=== PATIENT | male | born 1955 | race Caucasian/White ===

== ENCOUNTER → 2019-04-04 | Outpatient (CLI) | payer BC ==
[~2019-04-04] MED LIST: ACET325 PO; AMOCLA875 PO; Cipro500 MG PO; DIPH50 PO; Fibercon625 MG PO; Flagyl500 MG PO; MOVE FREE JOIN1 EACH PO; MULVIT PO; MULVITA PO; Multiple Vitam1 EAC1 PO; OMEPRAZOLE MAGN20 MG PO; Omeprazole20 M1; PSYL5.85P PO; Percocet 5-3251 EACH PO; Psyllium Fibe0.52 GM PO
[2019-04-05 13:37] LABS: Stool Occult Bld Immuno 1 Negative (NEGATIVE)
== END | disposition home or self-care (01) ==
LOC: LAB SHORT 11:29 → LAB 11:29
PROVIDERS: Nurse Practitioner Family
DX: Z00.00 Encounter for general adult medical examination without abnormal findings (principal); Z12.11 Encounter for screening for malignant neoplasm of colon
CPT/HCPCS: G0328

== ENCOUNTER 2021-10-20 07:08 | Day surgery (SDC) | payer MEDICARE ==
[~2021-10-20] VITALS: Ht 172.7 cm; Wt 89.4 kg
[2021-10-20] MEDS ORDERED: LOSA25 PO (07:38)
[2021-10-20] MEDS ORDERED: Flomax0.4 MG PO (07:38)
[2021-10-20] MEDS ORDERED: FINA5 PO (07:39)
--- NOTE | 2021-10-20 09:17 | NUR ---
10/20/21 0917 Duke Woods 0.1 ML EPI MIXED WITH LIDOCAINE 2% 10MLS PER ORDER TO CONSTITUTE LIDOCAINE 2% 1:100,000. LIDOCAINE 2% 1:100,000 MIXED 1:1 WITH BUPIVACAINE 0.75% PER ORDER. 10 MLS OF THIS INJECTED AT OPSITE BY DR DECKER
--- NOTE | 2021-10-20 09:43 | NUR ---
10/20/21 0943 Yanely Cabrera AT CHAIR SIDE
== END 2021-10-20 10:04 | disposition home or self-care (01) ==
LOC: ORSCSDS 07:08
PROVIDERS: Ophthalmology
PROC: 080N0ZZ Alteration of Right Upper Eyelid, Open Approach (ICD-10-PCS; principal; 2021-10-20 08:55)
PROC: 080P0ZZ Alteration of Left Upper Eyelid, Open Approach (ICD-10-PCS; principal; 2021-10-20 08:55)
DX: H02.831 Dermatochalasis of right upper eyelid (principal); H02.834 Dermatochalasis of left upper eyelid; I10 Essential (primary) hypertension; K21.9 Gastro-esophageal reflux disease without esophagitis; N40.0 Benign prostatic hyperplasia without lower urinary tract symptoms; Z79.899 Other long term (current) drug therapy
CPT/HCPCS: A9270; J2001; J2704

== ENCOUNTER 2022-10-05 07:30 | Day surgery (SDC) | payer MEDICARE ==
[~2022-10-05] VITALS: Ht 172.7 cm; Wt 85.9 kg
[~2022-10-05 07:30] MED LIST changes: +FINA5 PO; +Flomax0.4 MG PO; +LOSA25 PO
[2022-10-05] MEDS ORDERED: Vitamin D1000 UNI1 (07:49)
[2022-10-05] MEDS ORDERED: PSYSENPA (07:49)
== END 2022-10-05 10:25 | disposition home or self-care (01) ==
LOC: ORSCSDS 07:30
PROVIDERS: Student in an Organized Health Care Education/Training Program
PROC: 0DBM8ZX Excision of Descending Colon, Via Natural or Artificial Opening Endoscopic, Diagnostic (ICD-10-PCS; principal; 2022-10-05 09:00)
PROC: 0DBH8ZX Excision of Cecum, Via Natural or Artificial Opening Endoscopic, Diagnostic (ICD-10-PCS; principal; 2022-10-05 09:00)
PROC: 0DBK8ZX Excision of Ascending Colon, Via Natural or Artificial Opening Endoscopic, Diagnostic (ICD-10-PCS; principal; 2022-10-05 09:00)
PROC: 0DBN8ZX Excision of Sigmoid Colon, Via Natural or Artificial Opening Endoscopic, Diagnostic (ICD-10-PCS; principal; 2022-10-05 09:00)
PROC: 0DBL8ZX Excision of Transverse Colon, Via Natural or Artificial Opening Endoscopic, Diagnostic (ICD-10-PCS; principal; 2022-10-05 09:00)
DX: Z12.11 Encounter for screening for malignant neoplasm of colon (principal); Z86.010 Personal history of colon polyps; D12.3 Benign neoplasm of transverse colon; D12.0 Benign neoplasm of cecum; D12.2 Benign neoplasm of ascending colon; D12.4 Benign neoplasm of descending colon; K63.5 Polyp of colon; K57.30 Diverticulosis of large intestine without perforation or abscess without bleeding; K64.8 Other hemorrhoids; I10 Essential (primary) hypertension; Z79.899 Other long term (current) drug therapy
CPT/HCPCS: 88305; J2704; J7120

== ENCOUNTER 2024-02-24 10:27 | Emergency (ER) | payer MEDICARE ==
[~2024-02-24] VITALS: Ht 172.7 cm; Wt 83.9 kg
[~2024-02-24 10:27] MED LIST changes: +PSYSENPA; +Vitamin D1000 UNI1
[2024-02-24] MEDS ORDERED: Ketorolac Tromethamine 30mg Vial IV ONE ×2 (11:25→12:40)
[2024-02-24] MEDS ORDERED: CeFAZolin Sodium 1,000 MG in NS 50 ML IV ONE ×2 (11:30→12:40)
[2024-02-24] MEDS ORDERED: NS 1,000 ML IV SCH (11:30)
[2024-02-24 11:40] LABS: BASOPHILS ABSOLUTE AUTO 0.03 K/mm3 (0.00-0.23); BASOPHILS PERCENT AUTO 0 % (0-2); EOSINOPHILS ABSOLUTE AUTO 0.07 K/mm3 (0.00-0.68); EOSINOPHILS PERCENT AUTO 1 % (0-6); Hematocrit 38.3 % (37.0-53.0); Hemoglobin 13.7 g/dL (13.5-17.5); IMMATURE GRAN ABSOLUTE AUTO 0.11 K/mm3 (0.00-0.10); IMMATURE GRAN PERCENT AUTO 1 % (0-1); LYMPHOCYTES ABSOLUTE AUTO 0.68 K/mm3 (0.84-5.20); LYMPHOCYTES PERCENT AUTO 6 % (21-46); MONOCYTES ABSOLUTE AUTO 1.06 K/mm3 (0.16-1.47); MONOCYTES PERCENT AUTO 9 % (4-13); Mean Corpuscular HGB 34.4 pg (26.0-34.0); Mean Corpuscular HGB Conc 35.8 g/dL (31.5-36.5); Mean Corpuscular Volume 96 fL (80-100); Mean Platelet Volume 9.9 fL (9.1-12.4); NEUTROPHILS PERCENT AUTO 84 % (41-73); Platelet Count 140 K/mm3 (150-400); RDW Coefficient Variation 12.5 % (11.7-14.2); RDW Standard Deviation 44.6 fL (35.1-46.3); Red Blood Cell Count 3.98 M/mm3 (4.30-5.90); White Blood Cell Count 12.05 K/mm3 (4.00-11.30)
[2024-02-24 11:50] LABS: Albumin, Blood 3.4 g/dL (3.4-5.0); Albumin/Globulin Ratio 0.8 (0.8-1.8); Bilirubin, Total 1.2 mg/dL (0.1-1.0); Bun/Creatinine Ratio 11.8 (12.0-20.0); Calcium, Blood 9.6 mg/dL (8.5-10.1); Creatinine, Blood 1.27 mg/dL (0.60-1.20); Globulin, Blood 4.2 g/dL (2.2-4.0); Potassium, Blood 3.9 mmol/L (3.5-5.5); Total Protein, Blood 7.6 g/dL (6.4-8.2)
[2024-02-24 13:38] LABS: Influenza A, PCR NEGATIVE (NEGATIVE); Influenza B, PCR NEGATIVE (NEGATIVE); Resp Syncytial Virus, PCR NEGATIVE (NEGATIVE); SARS-Cov-2 (COVID-19) PCR, MMC NEGATIVE (NEGATIVE)
[2024-02-24] MEDS ORDERED: SULTRIDS PO (13:48)
[2024-02-24] MEDS ORDERED: CEPH500 PO (13:48)
[2024-02-24] MEDS ORDERED: IBUP600 PO (13:48)
[2024-02-24 14:35] VITALS: BP 114/89
== END 2024-02-24 14:38 | disposition home or self-care (01) ==
LOC: ER 10:27
PROVIDERS: Emergency Medicine
DX: L03.311 Cellulitis of abdominal wall (principal); L03.115 Cellulitis of right lower limb; E87.1 Hypo-osmolality and hyponatremia; I10 Essential (primary) hypertension; K21.9 Gastro-esophageal reflux disease without esophagitis; Z79.899 Other long term (current) drug therapy
CPT/HCPCS: 0241U; 36415; 71046; 80053; 83605; 85025; 87040; 93005; 93010; 96374; 96375; 99285-25; J0690; J1885; J7030

== ENCOUNTER 2024-08-16 08:36 | Day surgery (SDC) | payer MEDICARE, OTHER ==
[~2024-08-16] VITALS: Ht 172.7 cm; Wt 88.2 kg
[~2024-08-16 08:36] MED LIST changes: +CEPH500 PO; +IBUP600 PO; +Lactated Ringer's 1,000 ML IV ONE; +SULTRIDS PO; +propofoL 50 ML IV ONE
[2024-08-16] MEDS ORDERED: B-COMPLEX WITH1 EAC2 (09:15)
[2024-08-16] MEDS ORDERED: OMEGA MONOPURE (09:16)
[2024-08-16] MEDS ORDERED: Lactated Ringer's 1,000 ML IV ONE (09:45)
[2024-08-16 11:26] VITALS: BP 112/69
== END 2024-08-16 11:29 | disposition home or self-care (01) ==
LOC: ORSCSDS 08:36
DX: Z12.11 Encounter for screening for malignant neoplasm of colon (principal); D12.3 Benign neoplasm of transverse colon; K63.5 Polyp of colon; K57.30 Diverticulosis of large intestine without perforation or abscess without bleeding; Z86.0101 Personal history of adenomatous and serrated colon polyps; N40.0 Benign prostatic hyperplasia without lower urinary tract symptoms; I10 Essential (primary) hypertension; C85.10 Unspecified B-cell lymphoma, unspecified site; K21.9 Gastro-esophageal reflux disease without esophagitis; Z79.899 Other long term (current) drug therapy
CPT/HCPCS: 88305; J2704; J7120